=== PATIENT | female | born 1950 | race Caucasian/White ===

== ENCOUNTER 2019-06-04 14:02 | Outpatient (CLI) | payer MEDICARE, OTHER, SELFPAY ==
--- NOTE | 2019-06-04 14:16 | XR_ITS ---
WS: [id number] DEXA (DUAL ENERGY X-RAY ABSORPTIOMETRY) Bone mineral density was performed using a Ellie machine. HISTORY: POSTMENOPAUSAL COMPARISON: 03/21/2017 Lumbar spine BMD (L1-L4): 0.998 g/cm2 T score: -1.5 Z score: 0.1 Total hip BMD: Left: 0.814 g/cm2. T score: -1.5 Z score: -0.2 Right: 0.825 g/cm2. T score: -1.4 Z score: -0.1 10 year probability of a major osteoporotic fracture is 11%. Compared to the prior study from 03/21/2017. Lumbar spine bone mineral density has decreased by 3.8%. Bilateral hips bone mineral density has decreased by 3.1%. XR/XR DEXA axial skeleton* [id number] IMPRESSION: OSTEOPENIA based upon the WHO classification for females. Significant decrease in bone mineral density within the hips and lumbar spine s carol the prior study.
== END 2019-06-04 14:03 | disposition home or self-care (01) ==
LOC: RADWPI 14:09
PROVIDERS: Family Provider Family Medicine; PCP Family Medicine; Visit Provider Family Medicine
DX: Z78.0 Asymptomatic menopausal state (principal)
CPT/HCPCS: 77080

== ENCOUNTER 2019-08-08 08:58 | Outpatient (CLI) | payer MEDICARE, OTHER, SELFPAY ==
--- NOTE | 2019-08-08 09:33 | MM_ITS ---
WS: [id number] SCREENING DIGITAL MAMMOGRAM WITH CAD HISTORY: SCREENING COMPARISON: 05/04/2018, 04/19/2018, 03/21/2017 Bilateral CC and MLO views submitted. Computer aided detection analyzed. Breast composition: The breasts are heterogeneously dense, which may obscure small masses. No suspici ous masses, microcalcifications or architectural distortion. MM/[place] [id number] IMPRESSION: BI-RADS: 1-Negative FOLLOW UP: 1 Year Follow-up
== END 2019-08-08 08:59 | disposition home or self-care (01) ==
LOC: RADSHAW 09:05
PROVIDERS: Family Provider Family Medicine; PCP Family Medicine; Visit Provider Family Medicine
DX: Z12.31 Encounter for screening mammogram for malignant neoplasm of breast (principal)
CPT/HCPCS: 77067

== ENCOUNTER → 2020-07-21 08:05 | Outpatient (BNVA) | payer MEDICARE, OTHER, SELFPAY | PROVIDERS: Family Provider Family Medicine; PCP Family Medicine; Referring Provider Family Medicine; Visit Provider Specialist | DX: M17.12 Unilateral primary osteoarthritis, left knee (principal); S83.242A Other tear of medial meniscus, current injury, left knee, initial encounter; W19.XXXA Unspecified fall, initial encounter; X58.XXXA Exposure to other specified factors, initial encounter | CPT/HCPCS: 73560; 73565 ==

== ENCOUNTER 2020-08-11 16:14 | Outpatient (CLI) | payer MEDICARE, OTHER, SELFPAY ==
--- NOTE | 2020-08-11 16:45 | MR_ITS ---
WS: [id number] MRI LEFT KNEE HISTORY: M17.12 - Unilateral primary osteoarthritis, left knee COMPARISON: 07/21/2020 Anterior cruciate ligament: Intact. Posterior cruciate ligament: Intact. Medial collateral ligament: Intact. Posterior lateral corner structures: Intact. Medial menisci: Intact. Normal signal, size and shape. Lateral meniscus: Mild intrasubstance degeneration in the posterior horn. Most significant towards th e meniscal root. No tear. Extensor mechanism: Distal quadriceps tendon and patellar tendons are intact. Fluid and soft tissue: Minimal suprapatellar joint effusion. No Lopez's cyst. Osseous and articular structures: Patellofemoral compartment: Mild narrowing of the patellofemoral joint space. Loss of cartilage over the medial patella. 9 mm area of subchondral edema in the medial patellar facet. Medial compartment: Minimal fissuring of the cartilage. No marrow edema. Lateral compartment: Minimal fissuring of the cartilage. No marrow edema. MR/MR knee LT wo con* [id number] IMPRESSION: 1. Moderate chondromalacia medial patellar facet with associated subchondral m arrow edema. 2. Otherwise very minimal fissuring of the cartilage in the medial and lateral compartments.
== END 2020-08-11 16:15 | disposition home or self-care (01) ==
PROVIDERS: PCP Family Medicine; Visit Provider Specialist
DX: M17.12 Unilateral primary osteoarthritis, left knee (principal); M22.42 Chondromalacia patellae, left knee
CPT/HCPCS: 73721

== ENCOUNTER 2020-09-25 13:29 | Outpatient (CLI) | payer MEDICARE, OTHER, SELFPAY ==
--- NOTE | 2020-09-25 13:36 | MM_ITS ---
WS: [id number] SCREENING DIGITAL MAMMOGRAM WITH CAD HISTORY: SCREENING COMPARISON: 08/08/2019 and 04/19/2018 Bilateral CC and MLO views submitted. Computer aided detection analyzed. Breast composition: There are scattered areas of fibroglandular density. No suspicious masses, microc alcifications or architectural distortion. MM/[id number] IMPRESSION: BI-RADS: 1-Negative FOLLOW UP: 1 Year Follow-up
== END 2020-09-25 13:30 | disposition home or self-care (01) ==
LOC: RADSHAW 13:35
PROVIDERS: PCP Family Medicine; Visit Provider Family Medicine
DX: Z12.31 Encounter for screening mammogram for malignant neoplasm of breast (principal)
CPT/HCPCS: 77067

== ENCOUNTER → 2021-05-27 09:35 | Outpatient (BNVA) | payer MEDICARE, OTHER, SELFPAY | PROVIDERS: Visit Provider Nurse Practitioner Women's Health | DX: N76.3 Subacute and chronic vulvitis (principal) | CPT/HCPCS: 88305 ==

== ENCOUNTER → 2022-08-05 08:16 | Outpatient (BNVA) | payer MEDICARE, OTHER, SELFPAY | PROVIDERS: PCP Family Medicine; Visit Provider Family Medicine | DX: Z00.00 Encounter for general adult medical examination without abnormal findings (principal); E03.9 Hypothyroidism, unspecified; M17.12 Unilateral primary osteoarthritis, left knee | CPT/HCPCS: 80053; 80061; 84443 ==

== ENCOUNTER 2022-09-03 11:53 | Outpatient (CLI) | payer MEDICARE, OTHER, SELFPAY ==
--- NOTE | 2022-09-03 12:00 | USCV_ITS ---
Laura Hardy Age: 72 Gender: F : 1950 Exam Date: 09/03/2022 12:27 Ordering Phys: Nj Aquino MD Technologist: Exam Location: [facility] – [place] Indication: murmur BP: 136 / 66 HR: 69 Rhythm: Sinus Technical Quality: Adequate MEASUREMENTS (Male / Female) Normal Values 2D ECHO LV Diastolic Diameter PLAX 3.7 cm 4.2 - 5.9 / 3.9 - 5.3 cm LV Systolic Diameter PLAX 2.2 cm IVS Diastolic Thickness 1.1 cm 0.6 - 1.0 / 0.6 - 0.9 cm IVS Systolic Thickness 1.5 cm LVPW Diastolic Thickness 0.8 cm 0.6 - 1.0 / 0.6 - 0.9 cm LVPW Systolic Thickness 1.5 cm LVOT Diameter 2.0 cm LV Ejection Fraction 2D Teich 71.1 % LV Ejection Fraction MOD 2C 60.6 % LV Ejection Fraction 2C AL 62.0 % LA Diameter 4.0 cm LA Width 1.3 cm Aorta at Sinotubular Diameter 2.1 cm IVC Diameter 1.7 cm M-MODE Aortic Annulus Diameter 3.2 cm LA Ao Ratio MM 1.8 MV E Point Septal Separation 0.3 cm DOPPLER AV Peak Velocity 119.0 cm/s LVOT Peak Velocity 92.0 cm/s AV Area Cont Eq vti 2.3 cm squared AV Area Cont Eq pk 2.4 cm squared MV Peak Velocity 104.0 cm/s MV Area PHT 4.3 cm squared Mitral E to A Ratio 1.1 MV E' Velocity 43.5 cm/s Mitral E to MV E' Ratio 11.8 Mitral E to LV E' Lateral Ratio 11.3 Mitral E to LV E' Septal Ratio 12.6 TR Peak Velocity 115.0 cm/s TR Peak Gradient 5.3 mmHg TV Peak E Velocity 76.0 cm/s Right Atrial Pressure 3.0 mmHg Pulmonary Artery Systolic Pressu 8.3 mmHg FINDINGS Left Ventricle Left ventricle is normal in size. LV systolic function is normal with EF of 60 to 65% . No regional wall motion normalities are seen. Right Ventricle Normal in size and function Right Atrium Normal in size Left Atrium Normal in size Mitral Valve Structurally normal mitral valve. Trace mitral regurgitation. Aortic Valve Structurally normal aortic valve. No significant stenosis or regurgitation Tricuspid Valve Mild tricuspid regurgitation. Insufficient TR jet to evaluate RVSP. Pulmonic Valve Not well visualized. Trace pulmonic regurgitation. Pericardium Normal Aorta Normal in size IVC Appears to be normal CONCLUSIONS LV systolic function is normal with EF of 60 to 65%. Trace mitral regurgitation Trace pulmonic regurgitation No comparison studies are available Jose Alberto Wilson MD (Electronically Signed) Final Date: 11 September 2022 13:41 S
== END 2022-09-03 11:54 | disposition home or self-care (01) ==
LOC: RAD 11:58
PROVIDERS: PCP Family Medicine; Visit Provider Family Medicine
DX: R01.1 Cardiac murmur, unspecified (principal)
CPT/HCPCS: 93306

== ENCOUNTER 2022-09-20 09:57 | Outpatient (CLI) | payer MEDICARE, OTHER, SELFPAY ==
--- NOTE | 2022-09-20 10:06 | MM_ITS ---
WS: [id number] SCREENING DIGITAL TOMOSYNTHESIS MAMMOGRAM WITH CAD HISTORY: SCREENING COMPARISON: 09/25/2020 and 08/08/2019 Bilateral CC and MLO with tomosynthesis views submitted. Synthetic mammography reviewed. Computer aid ed detection analyzed. Breast composition: There are scattered areas of fibroglandular density. No suspicious masses, microc alcifications or architectural distortion. MM/[place] [id number] IMPRESSION: BI-RADS: 1-Negative FOLLOW UP: 1 Year Follow-up
== END 2022-09-20 09:58 | disposition home or self-care (01) ==
LOC: RAD 09:58
PROVIDERS: PCP Family Medicine; Visit Provider Family Medicine
DX: Z12.31 Encounter for screening mammogram for malignant neoplasm of breast (principal)
CPT/HCPCS: 77063; 77067

== ENCOUNTER → 2023-08-25 13:27 | Outpatient (BNVA) | payer MEDICARE, OTHER, SELFPAY | PROVIDERS: PCP Family Medicine; Visit Provider Family Medicine | DX: R30.0 Dysuria (principal); M54.50 Low back pain, unspecified | CPT/HCPCS: 81000 ==

== ENCOUNTER → 2023-09-12 08:12 | Outpatient (BNVA) | payer MEDICARE, OTHER, SELFPAY | PROVIDERS: PCP Family Medicine; Visit Provider Family Medicine | DX: R53.83 Other fatigue (principal); I10 Essential (primary) hypertension; R73.03 Prediabetes; N90.4 Leukoplakia of vulva; E03.9 Hypothyroidism, unspecified; R01.1 Cardiac murmur, unspecified; Z00.00 Encounter for general adult medical examination without abnormal findings | CPT/HCPCS: 80053; 80061; 83036; 84443 ==

== ENCOUNTER 2023-09-14 09:40 | Outpatient (CLI) | payer MEDICARE, OTHER, SELFPAY ==
--- NOTE | 2023-09-14 10:00 | CT_ITS ---
WS: [id number] CT LUMBAR SPINE, noncontrast. HISTORY: back pain for 1 year. worsening. TECHNIQUE: Contiguous 2.0 mm axial imaging are performed. Sagittal and coronal reformats are submitte d and reviewed. All CT scans at [facility] use at least one of these dose optimization techni ques: automated exposure control; mA and/or kV adjustment per patient size (includes targeted exams w here dose is matched to clinical indication); or iterative reconstruction. IV contrast: None DLP: 334.97 mGy.cm COMPARISON: None available. Normal posterior lumbar alignment. Severe disc space narrowing at L5-S1 with endplate sclerosis and v acuum disc phenomenon. No fractures. L1-2: Normal. L2-3: Mild annular disc bulging encroaching upon the ventral thecal sac. No stenosis. L3-4: Mild diffuse annular disc bulging encroaching upon the ventral thecal sac and subarticular rece sses. Mild facet arthritis. Mild central, bilateral subarticular recess and foraminal stenosis. Sligh tly greater stenosis on the LEFT. The disc does appear to contact the LEFT exiting L3 nerve root. L4-5: Mild annular disc bulging encroaching upon the ventral thecal sac and subarticular recesses. Bi lateral facet joint arthritis. Mild central and bilateral subarticular recess encroachment. L5-S1: Diffuse annular disc bulging is mild. Slight contact on the S1 nerve roots but no displacement . Mild bilateral foraminal narrowing and facet joint arthritis. Small RIGHT renal parapelvic cyst. Mild atherosclerosis aorta. CT/CT lumbar spine wo con* [id number] IMPRESSION: 1. Advanced degenerative disc disease with vacuum disc phenomenon at L5-S1. 2. No lumbar spine fracture. 3. L3-4: Mild central, bilateral subarticular recess and foraminal stenosis. D isc does minimally contact the LEFT exiting L3 nerve root. 4. L4-5: Mild central and bilateral subarticular recess stenosis. 5. L5-S1: Mild bilateral foraminal stenosis and facet arthropathy.
== END 2023-09-14 09:41 | disposition home or self-care (01) ==
LOC: RAD 09:41
PROVIDERS: PCP Family Medicine; Visit Provider Family Medicine
DX: M54.50 Low back pain, unspecified (principal); M51.36 Other intervertebral disc degeneration, lumbar region; M47.816 Spondylosis without myelopathy or radiculopathy, lumbar region; M48.061 Spinal stenosis, lumbar region without neurogenic claudication; M51.37 Other intervertebral disc degeneration, lumbosacral region; M48.07 Spinal stenosis, lumbosacral region; M47.817 Spondylosis without myelopathy or radiculopathy, lumbosacral region; G95.89 Other specified diseases of spinal cord; N28.1 Cyst of kidney, acquired
CPT/HCPCS: 72131

== ENCOUNTER 2023-09-26 14:18 | Outpatient (CLI) | payer MEDICARE, OTHER, SELFPAY ==
--- NOTE | 2023-09-26 14:30 | XR_ITS ---
WS: [id number] SCREENING DEXA SCAN [employer] CLINICAL INFORMATION: screening COMPARISON: 2019 FINDINGS: The L1-L4 bone mineral density measures 0.995 g/cm2. This corresponds to a T score score of -1.5 and Z score of 0.0. Left femoral neck bone mineral density measures 0.818 g/cm2. This corresponds to a T score of -1.5 an d Z score of 0.0. Right femoral neck bone mineral density measures 0.789 g/cm2. This corresponds to a T score -1.7of an d Z score of -0.2. Mean femoral neck bone mineral density measures 0.804 g/cm2. This corresponds to a T score of -1.6 an d Z score of -0.1. XR/XR DEXA axial skeleton* [id number] IMPRESSION: Osteopenia lumbar spine. Osteopenia femoral necks. Patient's FRAX calculated 10 year probability for major osteoporotic fracture i s 12.8% and osteoporotic hip fracture is 3.0%. Bone mineral density in lumbar spine decreased -0.3% Femoral density femoral necks decreased -2.0%
== END 2023-09-26 14:19 | disposition home or self-care (01) ==
LOC: RAD 14:18
PROVIDERS: PCP Family Medicine; Visit Provider Family Medicine
DX: Z13.820 Encounter for screening for osteoporosis (principal); M85.80 Other specified disorders of bone density and structure, unspecified site
CPT/HCPCS: 77080

== ENCOUNTER 2024-02-28 13:55 | Outpatient (CLI) | payer MEDICARE, OTHER, SELFPAY ==
--- NOTE | 2024-02-28 14:00 | USR_ITS ---
PROCEDURE INFORMATION: Exam: US Pelvis, Complete, Non-Obstetric Exam date and time: 02/28/2024 2:25 PM Age: 73 years old Clinical indication: Mass, lump, or swelling; Uterus; Additional info: F/u on uterine mass, transvaginal US if needed TECHNIQUE: Imaging protocol: Transabdominal pelvic nonobstetric ultrasound. Complete exam. Real time ultrasound with image documentation. COMPARISON: CT lumbar spine wo con* [id number] 09/14/2023 9:49 AM FINDINGS: Uterus: Slightly heterogeneous uterus measuring 6.6 x 3.1 x 3.6 cm. Well-defined hypoechoic mass noted in the posterior lower uterine segment, measuring approximately 4.4 x 4.6 x 2.9 cm. Abnormally thickened endometrium with cystic component measuring up to 1.1 cm. Right ovary/adnexa: Obscured by overlying bowel gas. Left ovary/adnexa: Obscured by overlying bowel gas. Intraperitoneal space: No intraperitoneal fluid. Urinary bladder: Normal. US/US pelvic complete* [id number] IMPRESSION: 1. Abnormally thickened endometrium with cystic component. Referral to OBGYN for endometrial biopsy recommended. 2. Nonspecific well-defined hyperechoic mass in the lower uterine segment. Further evaluation with contrast enhanced pelvic MRI should be considered.
== END 2024-02-28 13:56 | disposition home or self-care (01) ==
LOC: RAD 13:57
PROVIDERS: PCP Family Medicine; Visit Provider Family Medicine
DX: N85.00 Endometrial hyperplasia, unspecified (principal); D25.9 Leiomyoma of uterus, unspecified
CPT/HCPCS: 76856

== ENCOUNTER 2024-03-15 12:55 | Outpatient (RCR) | payer MEDICARE, OTHER, SELFPAY | END 2024-04-03 23:59 | disposition home or self-care (01) | LOC: SPT 12:55 | PROVIDERS: Visit Provider Neurological Surgery | DX: R53.1 Weakness (principal); R26.89 Other abnormalities of gait and mobility | CPT/HCPCS: 97110; 97112; 97161; 97530 ==

== ENCOUNTER 2024-04-04 06:00 | Outpatient (RCR) | payer MEDICARE, OTHER, SELFPAY | END 2024-05-04 23:59 | disposition home or self-care (01) | LOC: SPT 06:00 | PROVIDERS: Visit Provider Neurological Surgery | DX: R53.1 Weakness (principal); R26.89 Other abnormalities of gait and mobility | CPT/HCPCS: 97110; 97112; 97530 ==

== ENCOUNTER → 2024-05-02 14:31 | Outpatient (BNVA) | payer MEDICARE, OTHER, SELFPAY | PROVIDERS: Visit Provider Internal Medicine | DX: R07.9 Chest pain, unspecified (principal); I45.4 Nonspecific intraventricular block; R94.31 Abnormal electrocardiogram [ECG] [EKG] | CPT/HCPCS: 93005; 99204 ==

== ENCOUNTER 2024-05-09 10:24 | Outpatient (CLI) | payer MEDICARE, OTHER, SELFPAY ==
[2024-05-09 10:44] VITALS: BMI 24.9
--- NOTE | 2024-05-09 10:50 | ECG_ITS ---
[facility] Pat Name: Laura Hardy Department: Room: Gender: Female Employee Relations Assistant: : 1950 Requested By: Jose Alberto Wilson Order Number: [id number] Holden MD: Jose Alberto Wilson M.D. Interpretive Statements LEXISCAN SESTAMIBI STRESS TEST Procedure: At the baseline, the blood pressure was 190/63 mmHg with a heart rate of 90 bpm. The electrocardiogram showed normal sinus rhythm, interventicular conduction delay with normal ST and T's. The Lexiscan was infused over a period of 20 seconds. A total of 0.4 mg of Lexiscan was infused. The stress phase was continued for a total of 5 minutes. Heart rate was at the end of stress phase was 99 bpm and a blood pressure of 191/58 mmHg. The EKG at the peak infusion revealed normal sinus rhythm with no significant ST-T wave changes. Sestamibi was injected 20 seconds after the Lexiscan infusion. Blood pressure at the end of recovery phase was 182/53 mmHg with a heart rate of 99 bpm. Conclusion: 1. Normal EKG response to Lexiscan infusion 2. No Lexiscan induced chest pain or cardiac arrhythmia. 3. Normal blood pressure and heart rate response. 4. Sestamibi/sestamibi perfusion scan pending; see separate report. Electronically Signed On 05-27-2024 13:13:20 RUG BACKING STENCILER by Jose Alberto Wilson M.D. [email or web address]
--- NOTE | 2024-05-09 10:51 | NMCV_ITS ---
NM niurka perf SPECT r/s* [id number] Laura Hardy Age: 74 Gender: F : 1950 Exam Date: 05/09/2024 10:51 Ordering Phys: Jose Alberto Wilson M.D ([email or web address]) Technologist: LILI Ramirez Exam Location: [facility] Indications: cp STRESS TEST Please see separate stress test report in [facility] for full findings IMAGE PROTOCOL Rest/Stress 1 Lexiscan Day Radiopharmaceutical Dose (mCi) Administration Site Administered by Rest: Tc-99m 10.5 IV Margo Flores DIRECTOR OF BILLING Sestamibi Stress:Tc-99m 32 IV Margo Flores, DIRECTOR OF BILLING Sestamibi Rest: 09-May-2024 60 Discovery 630 Stress: 09-May-2024 30 Discovery 630 0.4mg Lexiscan. Supine position only as patient was unable to lay prone. SPECT RESULTS Technical Quality: Good Raw Data Analysis: Normal Image Corrections: No attenuation or motion correction applied Summed Stress Score: 0 Summed Rest Score: 0 Summed Difference Score: 0 PERFUSION FINDINGS SPECT images demonstrate homogeneous tracer distribution throughout the myocardium. FUNCTIONAL RESULTS (calculated via Gated SPECT) Stress Image LV EF (%): 89 Stress EDV (mL):44 TID: 0.9 Stress ESV (mL):5 FUNCTIONAL FINDINGS: There is normal left ventricular systolic function. IMPRESSIONS 1. Normal myocardial perfusion imaging with no evidence of ischemia 2. LV systolic function is normal Jose Alberto Wilson MD (Electronically Signed) Final Date: 10 May 2024 12:51 S
[2024-05-09] MEDS: regadenoson 0.4 Mg/5 ml Syringe IVP (11:44)
[2024-05-09 12:00] VITALS: BP 182/53; PULSE 99
== END 2024-05-09 10:25 | disposition home or self-care (01) ==
LOC: CDL 10:26
PROVIDERS: Visit Provider Internal Medicine
DX: R07.9 Chest pain, unspecified (principal)
CPT/HCPCS: 36415; 78452; 93017; 96374; A9500; J2785

== ENCOUNTER 2024-05-10 06:22 | Outpatient (CLI) | payer MEDICARE, OTHER, SELFPAY ==
--- NOTE | 2024-05-10 06:30 | USCV_ITS ---
Laura Hardy Age: 74 Gender: F : 1950 Exam Date: 05/10/2024 06:43 Ordering Phys: Jose Alberto Wilson M.D ([email or web address]) Technologist: [place] [facility] [place]: cp ef BP: 150 / 85 HR: 80 Rhythm: Sinus Technical Quality: Adequate MEASUREMENTS (Male / Female) Normal Values 2D ECHO LV Diastolic Diameter PLAX 3.6 cm 4.2 - 5.9 / 3.9 - 5.3 cm IVS Diastolic Thickness 1.1 cm 0.6 - 1.0 / 0.6 - 0.9 cm IVS Systolic Thickness 1.4 cm LVPW Diastolic Thickness 1.1 cm 0.6 - 1.0 / 0.6 - 0.9 cm LVPW Systolic Thickness 1.4 cm LVOT Diameter 1.7 cm LV Ejection Fraction 2D Teich 65.8 % LV Ejection Fraction MOD 4C 69.6 % LV Ejection Fraction MOD 2C 62.5 % LV Ejection Fraction 2C AL 62.5 % LA Diameter 2.3 cm RA Systolic Volume 4C AL 29.8 ml RA Systolic Volume 4C MOD 27.9 ml Aorta at Sinotubular Diameter 2.4 cm M-MODE LA Ao Ratio MM 1.1 AV Cusp Separation MM 1.9 cm DOPPLER AV Peak Velocity 117.0 cm/s LVOT Peak Velocity 96.0 cm/s AV Area Cont Eq vti 2.1 cm squared AV Area Cont Eq pk 1.8 cm squared MV Peak Velocity 91.0 cm/s MV Area PHT 4.3 cm squared Mitral E to A Ratio 0.8 TV Peak Velocity 154.5 cm/s TR Peak Velocity 163.0 cm/s TR Peak Gradient 10.6 mmHg TV Peak E Velocity 88.0 cm/s PV Peak Velocity 136.0 cm/s FINDINGS Left Ventricle Left ventricle is normal in size. LV systolic function is normal with EF of 60-65%. No regional wall motion abnormalities are seen. Grade 1 diastolic dysfunction Right Ventricle Normal in size and function Right Atrium Normal in size Left Atrium Normal in size Mitral Valve Structurally normal mitral valve.Mild mitral regurgitation. Aortic Valve Structurally normal aortic valve. No significant stenosis or regurgitation. Tricuspid Valve Insufficient TR jet to calculate RVSP Pulmonic Valve Not well visualized Pericardium Normal Aorta Normal in size IVC Not well visualized CONCLUSIONS LV systolic function is normal with EF of 60-65% Grade 1 diastolic dysfunction Mild mitral regurgitation Compared to prior echocardiogram from 2022, no significant changes are seen. Jose Alberto Wilson MD (Electronically Signed) Final Date: 11 May 2024 15:40 S
== END 2024-05-10 06:23 | disposition home or self-care (01) ==
PROVIDERS: Visit Provider Internal Medicine
DX: R06.02 Shortness of breath (principal); R93.1 Abnormal findings on diagnostic imaging of heart and coronary circulation; I34.0 Nonrheumatic mitral (valve) insufficiency
CPT/HCPCS: 93306

== ENCOUNTER 2024-05-14 06:00 | Outpatient (RCR) | payer MEDICARE, OTHER, SELFPAY | END 2024-05-28 11:02 | disposition home or self-care (01) | LOC: SPT 06:00 | PROVIDERS: Visit Provider Neurological Surgery | DX: R53.1 Weakness (principal); R26.89 Other abnormalities of gait and mobility | CPT/HCPCS: 97110; 97112; 97530 ==

== ENCOUNTER → 2024-05-28 14:46 | Outpatient (BNVA) | payer MEDICARE, OTHER, SELFPAY | PROVIDERS: PCP Family Medicine; Visit Provider Internal Medicine | DX: I10 Essential (primary) hypertension (principal); Z87.891 Personal history of nicotine dependence | CPT/HCPCS: 99214 ==

== ENCOUNTER → 2024-09-13 07:57 | Outpatient (BNVA) | payer MEDICARE, OTHER, SELFPAY | PROVIDERS: PCP Family Medicine; Visit Provider Family Medicine | DX: I10 Essential (primary) hypertension (principal); E03.9 Hypothyroidism, unspecified | CPT/HCPCS: 80053; 80061; 84443; 85025 ==

== ENCOUNTER 2024-09-24 17:28 | Emergency (ER) | payer MEDICARE, OTHER, SELFPAY ==
[2024-09-24] VITALS (7 sets, daily range): BP systolic 137–176; BP diastolic 67–89; PULSE 78–104; RESP 16; TEMP 36.7; O2SAT 95–97; BMI 24.0
[2024-09-24] MEDS: sodium chloride 0.9% 1,000 ML 999 ML IV (18:23)
[2024-09-24 18:28] LABS: Basophils # 0.1 10^3/uL (0.0-0.1); Basophils % 0.9 %; Eosinophils # 0.2 10^3/uL (0.0-0.8); Eosinophils % 1.9 %; Lymphocytes % 21.5 %; Mean Corpuscular Hemoglobin 28.1 pg (27-33); Mean Corpuscular Volume 85.3 fl (85-98); Mean Platelet Volume 11.3 fL (7.4-10.4); Monocytes # 0.7 10^3/uL (0.2-0.9); Monocytes % 7.3 %; Neutrophils # 6.21 10^3/uL (1.8-7.7); Neutrophils % 68.2 %; Nucleated Red Blood Cells % 0 %; Platelet Count 268 10^3/cmm (157-399); Red Blood Count 5.16 10^6/uL (3.85-5.65); Red Cell Distribution Width 12.9 % (12.1-15.1)
--- NOTE | 2024-09-24 18:28 | CTR_ITS ---
PROCEDURE INFORMATION: Exam: CT Head Without Contrast Exam date and time: 09/24/2024 7:26 PM Age: 74 years old Clinical indication: Dizziness and syncope and collapse; Prior surgery; Surgery date: 6+ months; Surgery type: Brain; Additional info: Dizziness, presyncope TECHNIQUE: Imaging protocol: Computed tomography of the head without contrast. Radiation optimization: All CT scans at this facility use at least one of these dose optimization techniques: automated exposure control; mA and/or kV adjustment per patient size (includes targeted exams where dose is matched to clinical indication); or iterative reconstruction. COMPARISON: No relevant prior studies available. RADIATION DOSE METRICS: Total DLP (mGy-cm): 1027.78 FINDINGS: Brain: Along the left frontal convexities, there is a sliver of extra-axial fluid demarcated by thickened dura measuring up to 3 mm in thickness. Minimal effacement of the adjacent left frontal sulcal/gyral pattern. Minimal mass effect on the subjacent brain. No intraparenchymal hemorrhage or edema. Normal overall brain morphology. Cerebral ventricles: No ventriculomegaly. Paranasal sinuses: Visualized sinuses are unremarkable. No fluid levels. Mastoid air cells: Visualized mastoid air cells are well aerated. Bones: There has been prior left frontotemporal craniotomy and craniectomy with cranioplasty. No acute bony abnormality. Soft tissues: Unremarkable. CT/CT head wo con* [id number] IMPRESSION: There is a sliver of left frontal extra-axial fluid at the site of prior craniotomy. Minimal mass effect noted on the subjacent brain. This may be a long-standing finding, but without priors for comparison this is difficult to confirm, but could be symptomatic.
[2024-09-24 18:40] LABS: Bilirubin Urine Negative (Negative); Blood Urine Negative (Negative); Glucose Urine UA Negative (Normal); Ketones Urine Negative (Negative); Leukocyte Esterase Urine Trace (Negative); Nitrate Urine Negative (Negative); Protein Urine Negative (Negative); Specific Gravity, Urine 1.007 (1.005-1.030); Urine Appearance Clear (CLEAR); Urine Color Yellow (Yellow); Urobilinogen Urine 0.2 mg/dL (Negative); pH Urine 6.5 (5-7)
[2024-09-24] MEDS: LORazepam 1 MG/0.5 ML injection 0.5 MG IVP (18:40)
[2024-09-24 18:42] LABS: Add Urine Microscopic? YES; Bacteria Urine None Seen /hpf; Hyaline Casts Urine 0-4 /lpf; RBC Urine 0-2 /hpf (0-2); Squamous Epithelial Cell Urine 0-5 /hpf (0-5); WBC Urine 0-5 /hpf (0-5)
[2024-09-24 18:43] LABS: Add Urine Culture? No
[2024-09-24 18:44] LABS: Alanine Aminotransferase 12 U/L (0-33); Albumin Level 5.1 g/dL (3.5-5.2); Alkaline Phosphatase 131 U/L (35-105); Anion Gap 19.7 (5-19); Aspartate Amino Transferase 16 U/L (0-32); Blood Urea Nitrogen 22 mg/dL (8-23); Carbon Dioxide 23 mmol/L (22-29); Chloride 101 mmol/L (98-107); Globulin 3.4 g/dL (1.3-4.6); Glucose 99 mg/dL (65-115); Lipase 32 U/L (13-60); Magnesium 2.2 mg/dL (1.7-2.3); Osmolality Calculated 293 mOsm/kg (285-295); Potassium 3.7 mmol/L (3.5-5.1); Sodium 140 mmol/L (136-145); Total Bilirubin 0.2 mg/dL (0.15-1.2); Total Protein 8.5 g/dL (6.6-8.7)
[2024-09-24 18:45] LABS: Lactic Sepsis W/Reflex 1.3 mmol/L (0.5-2.2)
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
[2024-09-24] MEDS: lactated ringers 1,000 ML 999 ML IV (20:25)
== END 2024-09-24 22:51 | disposition short-term general hospital (02) ==
PROVIDERS: Emergency Provider Physician Assistant; PCP Family Medicine
DX: S06.5X0A Traumatic subdural hemorrhage without loss of consciousness, initial encounter (principal); X58.XXXA Exposure to other specified factors, initial encounter
CPT/HCPCS: 70450; 80053; 81001; 83605; 83690; 83735; 85025; 96361; 96374; 99285; J2060; J7030; J7120

== ENCOUNTER 2024-11-12 10:13 | Outpatient (CLI) | payer MEDICARE, OTHER, SELFPAY ==
--- NOTE | 2024-11-12 09:00 | MM_ITS ---
WS: [id number] BILATERAL SCREENING DIGITAL TOMOSYNTHESIS MAMMOGRAM WITH CAD HISTORY: screening COMPARISON: 10/17/2023, 09/20/2022 and 09/25/2020 Bilateral CC and MLO views with tomosynthesis and synthetic mammography submitted. Computer aided detection analyzed. Breast composition: There are scattered areas of fibroglandular density. No suspicious masses, microcalcifications or architectural distortion. MM/MM scr BI tomosynthesis [id number] IMPRESSION: BI-RADS: 1 - Negative. FOLLOW UP: 1 Year Follow-up
== END 2024-11-12 10:14 | disposition home or self-care (01) ==
LOC: RAD 10:14
PROVIDERS: PCP Family Medicine; Visit Provider Family Medicine
DX: Z12.31 Encounter for screening mammogram for malignant neoplasm of breast (principal)
CPT/HCPCS: 77063; 77067

== ENCOUNTER → 2024-11-19 15:00 | Outpatient (BNVA) | payer MEDICARE, OTHER, SELFPAY | PROVIDERS: PCP Family Medicine; Visit Provider Internal Medicine | DX: I10 Essential (primary) hypertension (principal) | CPT/HCPCS: 99214 ==

== ENCOUNTER → 2025-02-06 07:42 | Outpatient (BNVA) | payer MEDICARE, OTHER, SELFPAY | PROVIDERS: PCP Family Medicine; Visit Provider Family Medicine | DX: I10 Essential (primary) hypertension (principal) | CPT/HCPCS: 80053; 84443; 85025 ==